=== PATIENT | male | born 1995 | race Two or more races ===

== ENCOUNTER 2018-07-08 09:47 | Emergency (ER) | payer OTHER ==
[~2018-07-08] VITALS: Ht 170.2 cm; Wt 95.3 kg
[2018-07-08 09:54] VITALS: BP 145/63
--- NOTE | 2018-07-08 10:26 | PHYS DOC ---
Adult General Chief Complaint Chief Complaint: OTHER COMPLAINTS HPI HPI Patient is a 22 year old male with no significant medical history who presents today complaining of rectal pain with irritation that began 3 days ago after he started having loose stools. Patient denies any abdominal pain. Denies any bloody stools. Denies any nausea or vomiting. Review of Systems Review of Systems Constitutional: Denies fever or chills [] Eyes: Denies change in visual acuity, redness, or eye pain [] HENT: Denies nasal congestion or sore throat [] Respiratory: Denies cough or shortness of breath [] Cardiovascular: No additional information not addressed in HPI [] GI: Reports rectal pain and irritation. Denies abdominal pain, nausea, vomiting , bloody stools or diarrhea [] : Denies dysuria or hematuria [] Musculoskeletal: Denies back pain or joint pain [] Integument: Denies rash or skin lesions [] Neurologic: Denies headache, focal weakness or sensory changes [] All other systems were reviewed and found to be within normal limits, except as documented in this note. Current Medications Current Medications Current Medications Medications (Trade) Dose Ordered Sig/Parag Start Time Stop Time Status Last Admin Dose Admin Info (CONTRAST GIVEN -- Rx MONITORING) 1 each PRN DAILY PRN 07/08/18 11:30 07/10/18 11:29 Iohexol (Omnipaque 300 Mg/ml) 100 ml 1X ONCE 07/08/18 11:30 07/08/18 11:31 DC 07/08/18 11:42 100 ML Allergies Allergies Allergies Coded Allergies Type Severity Reaction Last Updated Verified No Known Drug Allergies 07/08/18 No Physical Exam Physical Exam Constitutional: Well developed, well nourished, no acute distress, non-toxic appearance. [] HENT: Normocephalic, atraumatic, bilateral external ears normal, oropharynx moist, no oral exudates, nose normal. [] Eyes: PERRLA, EOMI, conjunctiva normal, no discharge. [] Neck: Normal range of motion, no tenderness, supple, no stridor. [] Cardiovascular:Heart rate regular rhythm, no murmur [] Lungs & Thorax: Bilateral breath sounds clear to auscultation [] Abdomen: Bowel sounds normal, soft, no tenderness, no masses, no pulsatile masses. [] Rectal exam External rectum appears mildly irritated. Skin: Warm, dry, no erythema, no rash. [] Back: No tenderness, no CVA tenderness. [] Extremities: No tenderness, no cyanosis, no clubbing, ROM intact, no edema. [] Neurologic: Alert and oriented X 3, normal motor function, normal sensory function, no focal deficits noted. [] Psychologic: Affect normal, judgement normal, mood normal. [] Current Patient Data Vital Signs Vital Signs Date Time Temp Pulse Resp B/P (MAP) Pulse Ox O2 Delivery O2 Flow Rate FiO2 07/08/18 09:54 98.0 100 16 145/63 (90) 100 Room Air 98.0 Lab Values Laboratory Tests Test 07/08/18 10:00 07/08/18 10:25 Stool Occult Blood Negative (NEG) White Blood Count 16.9 x10^3/uL (4.0-11.0) H Red Blood Count 5.06 x10^6/uL (4.30-5.70) Hemoglobin 15.5 g/dL (13.0-17.5) Hematocrit 45.9 % (39.0-53.0) Mean Corpuscular Volume 91 fL (79-100) Mean Corpuscular Hemoglobin 31 pg (25-35) Mean Corpuscular Hemoglobin Concent 34 g/dL (31-37) Red Cell Distribution Width 13.0 % (11.5-14.5) Platelet Count 198 x10^3/uL (140-400) Neutrophils (%) (Auto) 86 % (31-73) H Lymphocytes (%) (Auto) 8 % (24-48) L Monocytes (%) (Auto) 6 % (0-9) Eosinophils (%) (Auto) 1 % (0-3) Basophils (%) (Auto) 1 % (0-3) Neutrophils # (Auto) 14.5 x10^3uL (1.8-7.7) H Lymphocytes # (Auto) 1.3 x10^3/uL (1.0-4.8) Monocytes # (Auto) 0.9 x10^3/uL (0.0-1.1) Eosinophils # (Auto) 0.1 x10^3/uL (0.0-0.7) Basophils # (Auto) 0.1 x10^3/uL (0.0-0.2) Platelet Estimate Pending Sodium Level 140 mmol/L (136-145) Potassium Level 3.9 mmol/L (3.5-5.1) Chloride Level 104 mmol/L (98-107) Carbon Dioxide Level 26 mmol/L (21-32) Anion Gap 10 (6-14) Blood Urea Nitrogen 10 mg/dL (8-26) Creatinine 0.8 mg/dL (0.7-1.3) Estimated GFR (Cockcroft-Gault) 118.8 BUN/Creatinine Ratio 13 (6-20) Glucose Level 115 mg/dL (70-99) H Calcium Level 8.6 mg/dL (8.5-10.1) Total Bilirubin 0.5 mg/dL (0.2-1.0) Aspartate Amino Transferase (AST) 13 U/L (15-37) L Alanine Aminotransferase (ALT) 29 U/L (16-63) Alkaline Phosphatase 53 U/L (46-116) Total Protein 7.1 g/dL (6.4-8.2) Albumin 3.6 g/dL (3.4-5.0) Albumin/Globulin Ratio 1.0 (1.0-1.7) Laboratory Tests 07/08/18 10:25 Laboratory Tests 07/08/18 10:25 EKG EKG [] Radiology/Procedures Radiology/Procedures []PROCEDURE: CT ABD PELV W/ IV CONTRST ONLY CT of the abdomen and pelvis with contrast, 07/08/2018: HISTORY: Diarrhea and rectal pain Multidetector CT imaging was performed following an IV bolus injection of iodinated contrast material. No oral contrast material was administered for this study. The unopacified liver is unremarkable. No gallbladder abnormality is seen. The pancreas shows no abnormality. The spleen is of normal size. No renal or adrenal abnormality is detected. No abdominal or pelvic adenopathy is seen. The bowel loops are not dilated. The appendix shows no abnormality. No free fluid or free air is evident in the abdomen or pelvis. IMPRESSION: No acute abdominal or pelvic abnormality is detected. PQRS Compliance Statement: One or more of the following individualized dose reduction techniques were utilized for this examination: 1. Automated exposure control 2. Adjustment of the mA and/or kV according to patient size 3. Use of iterative reconstruction technique Electronically signed by: Ezio Ayoub MD (07/08/2018 12:11 PM) [facility] DICTATED and SIGNED BY: EZIO AYOUB MD DATE: 07/08/18 0391 Course & Med Decision Making Course & Med Decision Making Pertinent Labs and Imaging studies reviewed. (See chart for details) This is a 22-year-old male patient presented to the ED today complaining of rectal pain and irritation that began 3 days ago after he started having diarrhea. No abdominal pain nausea or vomiting. Negative fecal occult, CBC with a WBC of 16.9, CMP would not acute findings. CT of the abdomen and pelvic is negative for any acute findings. Patient was discharged with an Anusol cream. Sitzs baths recommended. F/u with PCP next week as needed. Dragon Disclaimer Dragon Disclaimer This electronic medical record was generated, in whole or in part, using a voice recognition dictation system. Departure Departure Impression: Primary Impression: Rectal irritation Additional Impression: Diarrhea Disposition: 01 HOME, SELF-CARE Condition: STABLE Referrals: UNKNOWN PCP NAME (PCP) CHELA HEIN MD follow up in 1 week Patient Instructions: Diarrhea, [id number] Additional Instructions: You were evaluated in the emergency room for rectal irritation due to diarrhea. Consider using sitz baths as discussed. Use the prescribed cream as needed. Push fluids. Follow-up with your doctor in 1-2 weeks of the provided specialist. Scripts Lidocaine/Prilocaine (LIDOCAINE-PRILOCAINE CREAM) 30 Gm Cream..g. 1 SHAY TP UD, #30 GM 1 Refill Prov: MUTUNGAALICE TEST PREPARATION TUTOR 07/08/18 Hydrocortisone (ANUSOL-HC) 30 Gm Cream..g. 1 SHAY TP BID, #30 GM 1 Refill Prov: MUTALICE PATEL TEST PREPARATION TUTOR 07/08/18 Problem Qualifiers Additional Impression: Diarrhea Diarrhea type: unspecified type Qualified Codes: R19.7 - Diarrhea, unspecified MUTALICE PATEL TEST PREPARATION TUTOR Jul 08, 2018 10:26
[2018-07-08 10:33] LABS: FECAL OB PT NEGATIVE (NEG)
[2018-07-08 10:38] LABS: BASO # 0.1 x10^3/uL (0.0-0.2); BASO % 1 % (0-3); EOS # 0.1 x10^3/uL (0.0-0.7); EOS % 1 % (0-3); HEMATOCRIT 45.9 % (39.0-53.0); HEMOGLOBIN 15.5 g/dL (13.0-17.5); LYMPH # 1.3 x10^3/uL (1.0-4.8); LYMPH % 8 % (24-48); MEAN CORPUSCULAR HEMOGLOBIN 31 pg (25-35); MEAN CORPUSCULAR HGB CONC 34 g/dL (31-37); MEAN CORPUSCULAR VOLUME 91 fL (79-100); MONO # 0.9 x10^3/uL (0.0-1.1); MONO % 6 % (0-9); NEUT # 14.5 x10^3uL (1.8-7.7); NEUT % 86 % (31-73); PLATELET COUNT 198 x10^3/uL (140-400); RED BLOOD COUNT 5.06 x10^6/uL (4.30-5.70); WHITE BLOOD COUNT 16.9 x10^3/uL (4.0-11.0)
[2018-07-08 10:47] LABS: CALCIUM 8.6 mg/dL (8.5-10.1); CREATININE 0.8 mg/dL (0.7-1.3); GFR 118.8; POTASSIUM 3.9 mmol/L (3.5-5.1)
[2018-07-08 10:54] LABS: ALBUMIN 3.6 g/dL (3.4-5.0); TOTAL BILIRUBIN 0.5 mg/dL (0.2-1.0); TOTAL PROTEIN 7.1 g/dL (6.4-8.2)
[2018-07-08] MEDS ORDERED: CONTRAST GIVEN. MC PRN (11:30)
[2018-07-08] MEDS: IOHEXOL 300 MG/ML 100ML VIAL. IV ONE (11:42)
--- NOTE | 2018-07-08 12:14 | RAD ---
CT of the abdomen and pelvis with contrast, 07/08/2018: HISTORY: Diarrhea and rectal pain Multidetector CT imaging was performed following an IV bolus injection of iodinated contrast material. No oral contrast material was administered for this study. The unopacified liver is unremarkable. No gallbladder abnormality is seen. The pancreas shows no abnormality. The spleen is of normal size. No renal or adrenal abnormality is detected. No abdominal or pelvic adenopathy is seen. The bowel loops are not dilated. The appendix shows no abnormality. No free fluid or free air is evident in the abdomen or pelvis. IMPRESSION: No acute abdominal or pelvic abnormality is detected. PQRS Compliance Statement: One or more of the following individualized dose reduction techniques were utilized for this examination: 1. Automated exposure control 2. Adjustment of the mA and/or kV according to patient size 3. Use of iterative reconstruction technique Electronically signed by: Ezio Ayoub MD (07/08/2018 12:11 PM) [facility]
[2018-07-08 12:38] LABS: % ATYL 6 % (0-0); % BANDS 3 % (0-9); % EOS 1 % (0-5); % LYMPHS 5 % (24-48); % MONOS 5 % (0-10); % SEGS 80 % (35-66); PLT ESTIMATE ADEQUATE (ADEQUATE)
[2018-07-08] MEDS ORDERED: HYDR30CR61 TP (12:42)
[2018-07-08] MEDS ORDERED: LIDO30CR TP (12:42)
== END 2018-07-08 12:57 | disposition home or self-care (01) ==
LOC: ER 09:47
DX: K62.89 Other specified diseases of anus and rectum (principal); R19.7 Diarrhea, unspecified
CPT/HCPCS: 36415; 74177; 80053; 82274; 85007; 85025; 99284; Q9967

== ENCOUNTER 2018-07-14 12:44 | Emergency (ER) | payer OTHER ==
[~2018-07-14] VITALS: Ht 180.3 cm; Wt 95.3 kg
[~2018-07-14 12:44] MED LIST: HYDR30CR61 TP; LIDO30CR TP
--- NOTE | 2018-07-14 14:05 | PHYS DOC ---
Past Medical History Past Medical History: No Pertinent History Past Surgical History: Other Additional Past Surgical Histo: rt femur rt ankle surgery Alcohol Use: Occasionally Drug Use: Marijuana Social History Narrative: REPORTS SOCIAL MARIJUANA USE Adult General Chief Complaint Chief Complaint: ABSCESS HPI HPI Patient is a 22 year old male who presents with left buttock pain and fullness. This started approximately a week ago. He was seen in the emergency department started on creams at that point. Things have gotten worse over time. Patient was seen at an outlying clinic this morning and sent to the emergency department for further evaluation and treatment. Patient notes he has had some intermittent fevers. Denies any blood in his stool. Increased pain with palpitation. No pain medicine or oral antibiotics have been administered.[] Review of Systems Review of Systems Constitutional: Denies fever or chills [] Eyes: Denies change in visual acuity, redness, or eye pain [] HENT: Denies nasal congestion or sore throat [] Respiratory: Denies cough or shortness of breath [] Cardiovascular: No chest pain or palpitations[] GI: Denies abdominal pain, nausea, vomiting, bloody stools or diarrhea [] : Denies dysuria or hematuria [] Musculoskeletal: Denies back pain or joint pain [] Integument: See history of present illness[] Neurologic: Denies headache, focal weakness or sensory changes [] Endocrine: Denies polyuria or polydipsia [] All other systems were reviewed and found to be within normal limits, except as documented in this note. Current Medications Current Medications Current Medications Medications (Trade) Dose Ordered Sig/Parag Start Time Stop Time Status Last Admin Dose Admin Ceftriaxone Sodium (Rocephin) 1 gm 1X ONCE 07/14/18 14:00 07/14/18 14:11 DC 07/14/18 14:43 1 GM Iohexol (Omnipaque 240 Mg/ml) 50 ml 1X ONCE 07/14/18 14:45 07/14/18 14:46 DC 07/14/18 14:45 50 ML Iohexol (Omnipaque 300 Mg/ml) 75 ml 1X ONCE 07/14/18 14:45 07/14/18 14:46 DC 07/14/18 14:45 75 ML Lidocaine HCl (Lidocaine 1% 20ml Vial) 20 ml 1X ONCE 07/14/18 17:45 07/14/18 17:46 DC Sodium Chloride 1,000 ml @ 1,000 mls/hr 1X ONCE 07/14/18 14:00 07/14/18 14:59 DC 07/14/18 14:44 1,000 MLS/HR Allergies Allergies Allergies Coded Allergies Type Severity Reaction Last Updated Verified No Known Drug Allergies 07/08/18 No Physical Exam Physical Exam Constitutional: Well developed, well nourished, no acute distress, non-toxic appearance. [] HENT: Normocephalic, atraumatic, bilateral external ears normal, oropharynx moist, no oral exudates, nose normal. [] Eyes: PERRLA, EOMI, conjunctiva normal, no discharge. [] Neck: Normal range of motion, no tenderness, supple, no stridor. [] Cardiovascular:Heart rate regular rhythm, no murmur [] Lungs & Thorax: Bilateral breath sounds clear to auscultation [] Abdomen: Bowel sounds normal, soft, no tenderness, no masses, no pulsatile masses. Rectal exam: At approximately the 7-8 o'clock position reference his rectum, there is fullness and erythema of his left buttock. No draining lesion noted. [ ] Skin: Warm, dry, no erythema, no rash. [] Back: No tenderness, no CVA tenderness. [] Extremities: No tenderness, no cyanosis, no clubbing, ROM intact, no edema. [] Neurologic: Alert and oriented X 3, normal motor function, normal sensory function, no focal deficits noted. [] Psychologic: Affect normal, judgement normal, mood normal. [] Current Patient Data Vital Signs Vital Signs Date Time Temp Pulse Resp B/P (MAP) Pulse Ox O2 Delivery O2 Flow Rate FiO2 07/14/18 17:04 72 16 118/74 (89) 98 Room Air 07/14/18 13:30 98.3 98.3 Lab Values Laboratory Tests Test 07/14/18 14:21 White Blood Count 12.9 x10^3/uL (4.0-11.0) H Red Blood Count 5.02 x10^6/uL (4.30-5.70) Hemoglobin 15.5 g/dL (13.0-17.5) Hematocrit 44.8 % (39.0-53.0) Mean Corpuscular Volume 89 fL (79-100) Mean Corpuscular Hemoglobin 31 pg (25-35) Mean Corpuscular Hemoglobin Concent 35 g/dL (31-37) Red Cell Distribution Width 12.8 % (11.5-14.5) Platelet Count 237 x10^3/uL (140-400) Neutrophils (%) (Auto) 83 % (31-73) H Lymphocytes (%) (Auto) 9 % (24-48) L Monocytes (%) (Auto) 7 % (0-9) Eosinophils (%) (Auto) 0 % (0-3) Basophils (%) (Auto) 1 % (0-3) Neutrophils # (Auto) 10.6 x10^3uL (1.8-7.7) H Lymphocytes # (Auto) 1.2 x10^3/uL (1.0-4.8) Monocytes # (Auto) 0.9 x10^3/uL (0.0-1.1) Eosinophils # (Auto) 0.0 x10^3/uL (0.0-0.7) Basophils # (Auto) 0.1 x10^3/uL (0.0-0.2) Sodium Level 140 mmol/L (136-145) Potassium Level 4.1 mmol/L (3.5-5.1) Chloride Level 105 mmol/L (98-107) Carbon Dioxide Level 24 mmol/L (21-32) Anion Gap 11 (6-14) Blood Urea Nitrogen 10 mg/dL (8-26) Creatinine 0.8 mg/dL (0.7-1.3) Estimated GFR (Cockcroft-Gault) 118.8 Glucose Level 95 mg/dL (70-99) Calcium Level 8.9 mg/dL (8.5-10.1) Laboratory Tests 07/14/18 14:21 Laboratory Tests 07/14/18 14:21 EKG EKG [] Radiology/Procedures Radiology/Procedures CT scan of the abdomen and pelvis FINDINGS: There is a well-circumscribed 5.5 x 2.6 x 4.7 cm (AP, transverse, cc) fluid collection in the left medial gluteal fold with mild surrounding inflammation. There is no extension into the pelvic cavity. Enlarged bilateral inguinal lymph nodes are seen, the largest in the right side measuring 1.8 x 1.5 cm and on the left side measuring 2.0 x 1.4 cm. 2.1 x 1.3 cm left external iliac chain lymph node (series 2 image 45). No free pelvic fluid. Visualized pelvic bowel is within normal limits. Urinary bladder is within normal limits. The prostate and seminal vesicles show no large mass. No suspicious bony lesion. IMPRESSION: Left medial gluteal fold abscess as described above without extension into the pelvic cavity with inguinal and pelvic reactive lymphadenopathy.[] Course & Med Decision Making Course & Med Decision Making Pertinent Labs and Imaging studies reviewed. (See chart for details) ED course: Patient arrived, was placed but, tolerated exam well. Patient was transported to and from CT scan with ankle medications. After the return of the CT findings and incision and drainage was performed see note below. He tolerated this well. Patient was discharged in improved condition. Medical decision making: There is no evidence of extension into the pelvis. No evidence of a perirectal fistula. Despite the elevated white count, patient appears to be stable for outpatient care Incision and drainage: After verbal consent with all questions answered, patient was prepped with Betadine, 7 mL of 1% lidocaine were infused. An incision was made with an 11 blade scalpel. Return of large amount of purulent material. Patient tolerated procedure well. No complications.[] Dragon Disclaimer Dragon Disclaimer This electronic medical record was generated, in whole or in part, using a voice recognition dictation system. Departure Departure Impression: Primary Impression: Gluteal abscess Disposition: 01 HOME, SELF-CARE Condition: GOOD Referrals: UNKNOWN PCP NAME (PCP) Patient Instructions: Abscess, Sitz Bath Additional Instructions: Keep the area clean and dry. Eat a high-fiber diet while taking the [place] tablets. Follow-up with your regular doctor in 2 days. Return to the ER if worsening pain, fever, or any other concerns. Scripts Sulfamethoxazole/Trimethoprim (BACTRIM DS TABLET) 1 Each Tablet 2 TAB PO BID, #40 TAB Prov: AFSHAN NEVAREZ DO 07/14/18 Meloxicam (MELOXICAM) 7.5 Mg Tablet 7.5 MG PO DAILY, #20 TAB Prov: AFSHAN NEVAREZ DO 07/14/18 Hydrocodone/Apap 5-325 (NORCO 5-325 TABLET) 1 Each Tablet 1-2 EACH PO PRN Q6HRS PRN for PAIN, #15 as needed for pain Prov: AFSHAN NEVAREZ DO 07/14/18 AFSHAN NEVAREZ DO Jul 14, 2018 14:05
[2018-07-14 14:32] LABS: BASO # 0.1 x10^3/uL (0.0-0.2); BASO % 1 % (0-3); EOS % 0 % (0-3); HEMATOCRIT 44.8 % (39.0-53.0); HEMOGLOBIN 15.5 g/dL (13.0-17.5); LYMPH # 1.2 x10^3/uL (1.0-4.8); LYMPH % 9 % (24-48); MEAN CORPUSCULAR HEMOGLOBIN 31 pg (25-35); MEAN CORPUSCULAR HGB CONC 35 g/dL (31-37); MEAN CORPUSCULAR VOLUME 89 fL (79-100); MONO # 0.9 x10^3/uL (0.0-1.1); MONO % 7 % (0-9); NEUT # 10.6 x10^3uL (1.8-7.7); NEUT % 83 % (31-73); PLATELET COUNT 237 x10^3/uL (140-400); RED BLOOD COUNT 5.02 x10^6/uL (4.30-5.70); RED CELL DISTRIBUTION WIDTH 12.8 % (11.5-14.5); WHITE BLOOD COUNT 12.9 x10^3/uL (4.0-11.0)
[2018-07-14] MEDS: cefTRIAXone IV Push 1 GM VIAL. IVP ONE (14:43)
[2018-07-14 14:44] LABS: CALCIUM 8.9 mg/dL (8.5-10.1); CREATININE 0.8 mg/dL (0.7-1.3); GFR 118.8; POTASSIUM 4.1 mmol/L (3.5-5.1)
[2018-07-14] MEDS: IV NORMAL SALINE 1000ML BAG 1,000 ML IV ONE (14:44)
[2018-07-14] MEDS: IOHEXOL 240 MG/ML 50ML VIAL. PO ONE (14:45)
[2018-07-14] MEDS: IOHEXOL 300 MG/ML 100ML VIAL. IV ONE (14:45)
--- NOTE | 2018-07-14 16:43 | RAD ---
PQRS Compliance statement: One or more of the following individualized dose reduction techniques were utilized for this examination: 1. Automated exposure control. 2. Adjustment of the mA and/or kV according to patient size. 3. Use of iterative reconstruction technique. Indication:LEFT GLUTEAL ABSCESS, [id number] 75ML, PRIOR SENT TECHNIQUE: CT pelvis with IV contrast with multiplanar reformats. COMPARISON: Previous CT from 07/08/2018 FINDINGS: There is a well-circumscribed 5.5 x 2.6 x 4.7 cm (AP, transverse, cc) fluid collection in the left medial gluteal fold with mild surrounding inflammation. There is no extension into the pelvic cavity. Enlarged bilateral inguinal lymph nodes are seen, the largest in the right side measuring 1.8 x 1.5 cm and on the left side measuring 2.0 x 1.4 cm. 2.1 x 1.3 cm left external iliac chain lymph node (series 2 image 45). No free pelvic fluid. Visualized pelvic bowel is within normal limits. Urinary bladder is within normal limits. The prostate and seminal vesicles show no large mass. No suspicious bony lesion. IMPRESSION: Left medial gluteal fold abscess as described above without extension into the pelvic cavity with inguinal and pelvic reactive lymphadenopathy. Electronically signed by: Gregory Smith DO (07/14/2018 4:39 PM) [facility]
[2018-07-14] MEDS: LIDOCAINE 1% Multi-Dose 20 ML VIAL. INJ ONE (18:15)
[2018-07-14] MEDS ORDERED: SULF1TAB24 PO (18:35)
[2018-07-14] MEDS ORDERED: MELO7.5T29 PO (18:35)
[2018-07-14] MEDS ORDERED: HYDR-3164 PO (18:35)
[2018-07-14 19:01] VITALS: BP 110/74
== END 2018-07-14 19:04 | disposition home or self-care (01) ==
LOC: ER 12:44
DX: L02.31 Cutaneous abscess of buttock (principal); R50.9 Fever, unspecified
CPT/HCPCS: 10060; 36415; 74170; 80048; 85025; 87040; 87071; 87075; 96374; 99284; J0696; J7030; Q9966; Q9967

== ENCOUNTER 2019-09-14 01:38 | Emergency (ER) | payer MEDICAID, OTHER ==
[~2019-09-14 01:38] MED LIST changes: +HYDR-3164 PO; +MELO7.5T29 PO; +SULF1TAB24 PO
[2019-09-14] MEDS ORDERED: SMZ/TMP 800/160MG TABLET. PO ONE (03:00)
[2019-09-14] MEDS ORDERED: HYDROcodone/APAP 10/325 1 TAB TABLET PO ONE (03:00)
--- NOTE | 2019-09-14 03:23 | PHYS DOC ---
Past Medical History Past Medical History: No Pertinent History Past Surgical History: Other Additional Past Surgical Histo: rt femur rt ankle surgery Smoking Status: Current Some Day Smoker Alcohol Use: Occasionally Drug Use: Marijuana Adult General Chief Complaint Chief Complaint: HEMORRHOIDS HPI HPI Patient is a 23 year old male with history of perirectal gluteal abscess who was with fullness to perirectal area times one week. Patient reports the pain tenderness and swelling. Denies drainage. Patient denies bloody or painful bowel movements. No fevers chills or sweats. Patient was in the emergency department approximately year ago for perirectal abscess which was drained by the ED physician. Patient does not currently have a primary care provider and has not been evaluated for his current symptoms prior to 2 days visit.[] Review of Systems Review of Systems ROS as per HPI All other systems were reviewed and found to be within normal limits, except as documented in this note. Current Medications Current Medications Current Medications Medications (Trade) Dose Ordered Sig/Parag Start Time Stop Time Status Last Admin Dose Admin Acetaminophen/ Hydrocodone Bitart (Lortab 10/325) 1 tab 1X ONCE 09/14/19 03:00 09/14/19 03:01 DC Trimethoprim/ Sulfamethoxazole (Bactrim Ds) 1 tab 1X ONCE 09/14/19 03:00 09/14/19 03:01 DC Allergies Allergies Allergies Coded Allergies Type Severity Reaction Last Updated Verified No Known Drug Allergies 07/08/18 No Physical Exam Physical Exam Constitutional: Well developed, well nourished, no acute distress, non-toxic appearance. [] HENT: Normocephalic, atraumatic, bilateral external ears normal, oropharynx moist, no oral exudates, nose normal. [] Eyes: PERRLA, EOMI, conjunctiva normal, no discharge. [] Neck: Normal range of motion, no tenderness, supple, no stridor. [] Cardiovascular:Heart rate regular rhythm, no murmur [] Lungs & Thorax: Bilateral breath sounds clear to auscultation [] Abdomen: Bowel sounds normal, soft, no tenderness. [] Rectal: No hemorrhoids, soft tissue fullness, min tenderness without induration, fluctuance over her knee him at 12 o'clock position. [] Back: No tenderness, no CVA tenderness. [] Extremities: No tenderness, no cyanosis, no clubbing, ROM intact, no edema. [] Neurologic: Alert and oriented X 3, normal motor function, normal sensory function, no focal deficits noted. [] Psychologic: Affect normal, judgement normal, mood normal. [] EKG EKG [] Radiology/Procedures Radiology/Procedures [] Course & Med Decision Making Course & Med Decision Making Pertinent Labs and Imaging studies reviewed. (See chart for details) Soft tissue infection of perirectal region. Will place on antibiotics with instructions follow-up with local primary care physician and/or general surgeon.] Dragon Disclaimer Dragon Disclaimer This electronic medical record was generated, in whole or in part, using a voice recognition dictation system. Departure Departure Impression: Primary Impression: Perirenal abscess Disposition: HOME, SELF-CARE Condition: STABLE Referrals: UNKNOWN PCP NAME (PCP) CHELA BRONSON MD Patient Instructions: Abscess Additional Instructions: You were evaluated emergency department for redness swelling. Symptoms are consistent with an early perirectal soft tissue infection. Please take pain medication antibiotics as directed and use sitz baths. Follow-up with local primary care provider and on-call general surgeon. Scripts Hydrocodone Bit/Acetaminophen (HYDROCODONE-APAP 5-325 ) 1 Tab Tablet 1 TAB PO PRN Q6HRS PRN for PAIN, #10 TAB 0 Refills Prov: JOHN AWAD DO 09/14/19 Sulfamethoxazole/Trimethoprim (BACTRIM DS TABLET) 1 Each Tablet 1 TAB PO BID for 10 Days, #20 TAB 0 Refills Prov: JOHN AWAD DO 09/14/19 JOHN AWAD DO Sep 14, 2019 03:23
[2019-09-14] MEDS ORDERED: HYDR-2761 PO (03:39)
[2019-09-14] MEDS ORDERED: SULF1TAB24 PO (03:39)
== END 2019-09-14 03:45 | disposition home or self-care (01) ==
LOC: ER 01:38
DX: K61.0 Anal abscess (principal); F17.200 Nicotine dependence, unspecified, uncomplicated
CPT/HCPCS: 99283

== ENCOUNTER 2019-10-19 08:04 | Emergency (ER) | payer OTHER ==
[~2019-10-19] VITALS: Ht 170.2 cm; Wt 100.0 kg
[~2019-10-19 08:04] MED LIST changes: +HYDR-2761 PO
[2019-10-19] MEDS ORDERED: KETOROLAC TROMETHAMINE 10 MG TABLET PO STA (09:46)
[2019-10-19 09:50] VITALS: BP 117/71
--- NOTE | 2019-10-19 10:05 | PHYS DOC ---
Past Medical History Past Medical History: No Pertinent History Past Surgical History: Other Additional Past Surgical Histo: rt femur rt ankle surgery Smoking Status: Current Some Day Smoker Alcohol Use: Occasionally Drug Use: Marijuana Adult General Chief Complaint Chief Complaint: ANKLE PROBLEM HPI HPI Patient is a 24 year old male who presents with a fall down some stairs on Friday. The patient since that time is been having difficulty bearing weight on his right lower extremity. He states the pain is in his right ankle and shoots up the right tib-fib. Rates his pain is 8 out of 10 in severity and states his been taking Tylenol at home. Complete ROS were reviewed and found to be within normal limits, except as documented in the HPI Current Medications Current Medications Current Medications Medications (Trade) Dose Ordered Sig/Parag Start Time Stop Time Status Last Admin Dose Admin Ketorolac Tromethamine (Toradol) 10 mg 1X STAT 10/19/19 09:46 10/19/19 09:51 DC 10/19/19 10:18 10 MG Allergies Allergies Allergies Coded Allergies Type Severity Reaction Last Updated Verified No Known Drug Allergies 07/08/18 No Physical Exam Physical Exam Constitutional: Well developed, well nourished, no acute distress, non-toxic appearance. [] HENT: Normocephalic, atraumatic, bilateral external ears normal, oropharynx moist, no oral exudates, nose normal. [] Lungs & Thorax: Bilateral breath sounds clear to auscultation [] Extremities: Tenderness to right lower extremity. Neurologic: Alert and oriented X 3, normal motor function, normal sensory function, no focal deficits noted. [] Psychologic: Affect normal, judgement normal, mood normal. [] Current Patient Data Vital Signs Vital Signs Date Time Temp Pulse Resp B/P (MAP) Pulse Ox O2 Delivery O2 Flow Rate FiO2 10/19/19 08:51 98.0 70 16 117/71 (86) 97 Room Air 98.0 EKG EKG [] Radiology/Procedures Radiology/Procedures [][facility] [address] [place] [address] IMAGING REPORT Signed PATIENT: DEN ESPINO ACCOUNT: [id number] : 1995 LOCATION: ER AGE: 24 SEX: M EXAM STATUS: REG ER ORD. PHYSICIAN: LINDA ARMAS APRN REASON: fall PROCEDURE: ANKLE RIGHT 3V Three-view right ankle and two-view right tibia-fibula HISTORY: Pain status post fall Three-view right ankle: AP lateral oblique views The visualized osseous structures appear normal. The tibiotalar relationship is normal. There is soft tissue swelling over the lateral malleolus. IMPRESSION: Soft tissue swelling over the lateral malleolus could be secondary to ligamentous injury. No evidence of fracture or dislocation. End impression Two-view right tibia-fibula AP lateral views Minimal irregularity of the tibial tubercle could be secondary to old Jg-Schlatter's disease. The visualized osseous structures are grossly intact. IMPRESSION: No acute findings. Electronically signed by: Vivian Alonso III, MD (10/19/2019 10:26 AM) [id number] DICTATED and SIGNED BY: VIVIAN ALONSO III, MD DATE: 10/19/19 1026 Course & Med Decision Making Course & Med Decision Making Pertinent Labs and Imaging studies reviewed. (See chart for details) We will get imaging and give Toradol to the patient. Imaging is unremarkable for acute changes except for as shown some swelling which likely indicates an ankle sprain. We will have the patient placed in an Papito wrap, the patient already has crutches. Dragon Disclaimer Dragon Disclaimer This electronic medical record was generated, in whole or in part, using a voice recognition dictation system. Departure Departure Impression: Primary Impression: Ankle pain Disposition: 01 HOME, SELF-CARE Condition: STABLE Referrals: NO PCP (PCP) Patient Instructions: Ankle Pain Additional Instructions: Thank you for visiting [facility]. We appreciate you trusting us with your care. If any additional problems come up don't hesitate to return to visit us. Please follow up with your primary care provider so they can plan additional care if needed and know about the problem that you had. If symptoms worsen come back to the Emergency Department. Any concerning symptoms that start such as chest pain, shortness of air, weakness or numbness on one side of the body, running high fevers or any other concerning symptoms return to the ER. Problem Qualifiers Primary Impression: Ankle pain Chronicity: acute Laterality: right Qualified Codes: M25.571 - Pain in right ankle and joints of right foot LINDA ARMAS APRN Oct 19, 2019 10:05
--- NOTE | 2019-10-19 10:29 | RAD ---
Three-view right ankle and two-view right tibia-fibula HISTORY: Pain status post fall Three-view right ankle: AP lateral oblique views The visualized osseous structures appear normal. The tibiotalar relationship is normal. There is soft tissue swelling over the lateral malleolus. IMPRESSION: Soft tissue swelling over the lateral malleolus could be secondary to ligamentous injury. No evidence of fracture or dislocation. End impression Two-view right tibia-fibula AP lateral views Minimal irregularity of the tibial tubercle could be secondary to old [place]-Schlatter's disease. The visualized osseous structures are grossly intact. IMPRESSION: No acute findings. Electronically signed by: Dinesh June III, MD (10/19/2019 10:26 AM) [id number]
--- NOTE | 2019-10-19 10:29 | RAD ---
Three-view right ankle and two-view right tibia-fibula HISTORY: Pain status post fall Three-view right ankle: AP lateral oblique views The visualized osseous structures appear normal. The tibiotalar relationship is normal. There is soft tissue swelling over the lateral malleolus. IMPRESSION: Soft tissue swelling over the lateral malleolus could be secondary to ligamentous injury. No evidence of fracture or dislocation. End impression Two-view right tibia-fibula AP lateral views Minimal irregularity of the tibial tubercle could be secondary to old [place]-Schlatter's disease. The visualized osseous structures are grossly intact. IMPRESSION: No acute findings. Electronically signed by: Dinesh June III, MD (10/19/2019 10:26 AM) [id number]
== END 2019-10-19 10:49 | disposition home or self-care (01) ==
LOC: ER 08:04
DX: M25.571 Pain in right ankle and joints of right foot (principal); G89.11 Acute pain due to trauma; M79.661 Pain in right lower leg; F17.200 Nicotine dependence, unspecified, uncomplicated; Z98.890 Other specified postprocedural states; W10.8XXA Fall (on) (from) other stairs and steps, initial encounter; Y93.89 Activity, other specified; Y92.89 Other specified places as the place of occurrence of the external cause; Y99.8 Other external cause status
CPT/HCPCS: 73590; 73610; 99284